=== PATIENT | female | born 1970 | race Caucasian/White ===

== ENCOUNTER 2020-10-31 09:30 | Observation (INO) ==
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
[~2020-10-31 09:30] MED LIST: LACTATED RINGER'S 1,000 ML IV SCH; LR 15ML/HR IV SCH
[2020-10-31] MEDS ORDERED: fentaNYL citrate 100 MCG/2 ML VIAL IV PRN (10:35)
[2020-10-31] MEDS ORDERED: ONDANSETRON INJ 2 MG/ML 2 ML VIAL IV PRN (10:35)
[2020-10-31] MEDS ORDERED: LABETALOL HCL IV 5 MG/ML 20ML IV PRN (10:35)
[2020-10-31] MEDS ORDERED: HYDROmorphone INJ 1 MG/ML SYRINGE IV PRN (10:35)
[2020-10-31] MEDS ORDERED: ePHEDrine sulfate 50 MG/ML AMP IV PRN (10:35)
[2020-10-31] MEDS ORDERED: PHENYLEPHRINE 100MCG/ML 5ML SYR IV PRN (10:35)
[2020-10-31] MEDS ORDERED: ATROPINE SULFATE 0.1 MG/ML 10ML SYR IV PRN (10:35)
[2020-10-31] MEDS ORDERED: PROPOFOL IV EMULSION 10 MG/ML 20 ML VIAL IV ONE (11:39)
[2020-10-31] MEDS ORDERED: GLYCOPYRROLATE 0.2 MG/ML VIAL ONE (11:39)
[2020-10-31] MEDS ORDERED: NEOSTIGMINE METHYLSULFATE 1 MG/ML 10ML VIAL ONE (11:39)
[2020-10-31] MEDS ORDERED: DEXAMETHASONE SOD INJ 4 MG/ML VIAL ONE (11:39)
[2020-10-31] MEDS ORDERED: ROCURONIUM BROMIDE 10 MG/ML 5 ML VIAL IV ONE ×3 (11:39→14:36)
[2020-10-31] MEDS ORDERED: LIDOCAINE 2% 2 ML VIAL/AMP(20MG/ML) INFIL ONE (11:39)
[2020-10-31] MEDS ORDERED: ONDANSETRON INJ 2 MG/ML 2 ML VIAL ONE (11:39)
[2020-10-31] MEDS ORDERED: fentaNYL citrate 100 MCG/2 ML VIAL ONE (11:40)
[2020-10-31] MEDS ORDERED: MIDAZOLAM HCL 1 MG/ML 2ML VIAL ONE (11:40)
--- NOTE | 2020-10-31 11:59 | History & Physical Bridge Note ---
Date of Service October 31, 2020 History & Physical Bridge Note I have examined the patient, reviewed the History & Physical and in the interval since the performance of the History & Physical I have noted the following changes of clinical significance: no changes noted
[2020-10-31] MEDS ORDERED: BUPIVACAINE 0.5 % 5 MG/1 ML MPF 30ML VIAL ONE (12:12)
[2020-10-31] MEDS ORDERED: LABETALOL HCL IV 5 MG/ML 20ML IV ONE (13:21)
[2020-10-31] MEDS ORDERED: TISSEEL FIBRIN SEALANT 4ML TOP ONE (13:23)
[2020-10-31] MEDS ORDERED: DIATRIZOATE MEGLUMINE 30% 100ML VIAL INSTIL ONE (14:05)
[2020-10-31] MEDS ORDERED: ceFAZolin 3,000 MG in DEXTROSE 5% 50 ML IV ONE (14:14)
--- NOTE | 2020-10-31 15:09 | Operative Report ---
PG Post Operative Report Pre & Post Diagnosis Operation Date: 10/31/20 11:10 Pre-Op Diagnosis: Right Ovarian Cyst Post-Op Diagnosis: Right Ovarian Cyst I identified the patient and participated in the time-out.: Yes Procedure Operation Date: 10/31/20 11:10 Actual Procedures p Laparoscopic Robotic Assisted Bilateral Salpingo-Oophorectomy,Cystoscopy, Lysis of Adhesion(Bilateral) - Siddhartha Kelsey MD, FACOG s Cystoscopy Retrograde - Aj Raza MD Surgeon Siddhartha Kelsey MD, FACOG Branch Service Associate .. Estimated Blood Loss 20 Findings Consistent with Post-Op Diagnosis Specimens bilateral adnexa Description of Procedure Patient was given a general anesthetic prepped and draped in dorsolithotomy position bladder drained with a catheter a sponge and a stick was placed in the vagina Gloves were changed us supraumbilical incision was made with scalpel using Sun technique we did a cutdown into the peritoneal cavity entering bluntly with the computer aided design operator's finger a Sun trocar was then placed blunt tip balloon was inflated with air and CO2 gas used to insufflate the abdomen para findings upper abdomen normal no sign of visceral organ injury Deep Trendelenburg was then obtained and the pelvis was viewed Findings significant adhesive disease of epiploic K and filmy adhesions to the bladder as well as both sidewalls and the ovaries pictures taken for documentation 2 robotic ports were placed one in the left one on the right and a accessory port 8 mm on the left upper quadrant all placed under direct visualiz ation Once the robot was docked arm #1 was the bipolar [place] arm #3 was the monopolar manda identified on the right side the ureter it followed a normal course I was able to make a window into the broad ligament lateral to the ovarian artery and vein was then able to undermine the ovarian artery and vein and from the ureter a window was then made we were well away from the right ureter I then coagulated with the bipolar [place] in several locations and then cut the blood supply to the ovary the ovary was attached to epiploic K which were carefully skeletonized off primarily sharply with the curved scissors and I was able to peel the ovary off of the sidewall as well without electrosurgery the last attachment to the distal aspect of the pelvis were removed the patient had a prior hysterectomy so there were no uterine blood supply issues. Ovary was placed in the pelvis the same process was continued on the left side the adhesions were more dense the patient did not have an abnormal left ovary however she wanted both ovaries removed prophylactically I was able to free up the adhesions on the left side. Isolated the blood supply at the left ovarian artery and vein proximal to the ovary this was well away from the left ureter this blood supply was then coagulated and then cut ovary was easily skeletonized used away from its attachments as it was somewhat less adhesed on this side to the sidewall. At this stage hemostasis was excellent we did apply Tisseel to the area because of the location of the ovaries hugging the sidewalls I felt it prudent to do cystoscopy We remove the ovaries by placing the robotic camera and using it manually laparoscopically through the right sided port 10 mm bag was placed to the umbilicus both specimens of the left and right ovary were grasped and placed into the bag with a nontraumatic grasper bag was then removed through the umbilical port and then both specimens were sent to pathology. The umbilical port was then placed back to allow pneumoperitoneum Cystoscope was placed into the bladder visualizing with normal saline abnormal bladder dome no sign of injury the left ureter had a good strong jets instantly I did not see a good strong jets from the right ureter opening. This was observed for at least 25 minutes at this stage I called urology Dr. Raza Is dictated the note but a retrograde pyelogram was performed there was no extravasation of dye no obstruction of the right ureter and we saw no leakage laparoscopically of dye during this process either. This was no obvious explanation why I could not see good strong jet on that right ureter however the patency was established there was no sign of extravasation or blockage. At this stage we made a decision that we will probably keep her hospitalized overnight and recheck her creatinine in the morning and see how her pain level is. After removing all the cystoscope draining the bladder removing all the laparoscopic instruments and ports robot had been undocked gas was allowed to escape incisions injected with 0.5% Marcaine fascia closed in the umbilicus with 0 Vicryl subtenons fat irrigated and closed with 0 Vicryl 4-0 subcuticular Monocryl closures and Dermabond applied sponge and instrument counts correct I attest to the content of the Intraoperative Record and any orders documented therein. Any exceptions are noted below. HERB COUNSELOR Major Procedure Codes Laparotomy/Laparoscopic [address] [facility] (Lysis of adhesions.)
--- NOTE | 2020-10-31 15:12 | Fluoroscopy Report ---
FL retrograde includes kub CLINICAL HISTORY: Retrograde pyelogram. COMPARISON STUDY: None. FLUOROSCOPY TIME: 15 second. FINDINGS: 17 fluoroscopic spot images of the abdomen and pelvis demonstrate retrograde opacification of the right renal collecting system. No hydronephrosis. IMPRESSION: Fluoroscopic assistance for right retrograde pyelogram. ACT 112: Negative or not required by law. Electronically signed by: Fly Darling M.D. 10/31/2020 3:11 PM
--- NOTE | 2020-10-31 15:16 | Anesthesiology Progress Note ---
Date of Service October 31, 2020 Anesthesia Post Procedure Vital Signs Vital Signs: Temp Pulse Resp BP Pulse Ox 10/31/20 10:02 36.9 C 79 18 147/88 H 99 Pain Intensity Right Lower Back: Pain Intensity: 7 Transfer of Care Handoff Completed per policy Notes Mental Status: alert / awake / arousable and participated in evaluation Patient Amnestic to Procedure: Yes Nausea / Vomiting: adequately controlled Pain: adequately controlled Airway Patency, RR, SpO2: stable & adequate BP & HR: stable & adequate Hydration State: stable & adequate Anesthetic Complications: no major complications apparent and Pt Satisfied with anesthetic care
--- NOTE | 2020-10-31 15:20 | Operative Report ---
PG Post Operative Report Pre & Post Diagnosis Operation Date: 10/31/20 11:10 Pre-Op Diagnosis: Right Ovarian Cyst Post-Op Diagnosis: Right Ovarian Cyst I identified the patient and participated in the time-out.: Yes Procedure Operation Date: 10/31/20 11:10 Actual Procedures p Laparoscopic Robotic Assisted Bilateral Salpingo-Oophorectomy,Cystoscopy, L ysis of Adhesion(Bilateral) - Siddhartha Kelsey MD, FACOG s Cystoscopy, Retrograde retrograde pyelogram with radiographic interpretation to rule out ureteral injury - Aj Raza MD Surgeon Aj Raza MD Pressure Test Operator ..None Estimated Blood Loss 0 Findings Consistent with Post-Op Diagnosis 1. Normal urethra and bladder 2. Right retrograde pyelogram revealed no narrowing or extravasation. Diet promptly drained from the ureter and multiple spot films show drainage of contrast from the kidney and proximal ureter. 3. Able to easily pass 5 Algerian open-ended catheter level of the renal pelvis 4. There was a scope in the abdomen at the time of retrograde pyelogram and we saw no pooling of contrast in the pelvis in the area of the distal right ureter 5. Intra-abdominal findings did not show any obvious injury to the ureter and it was peristalsing. The retroperitoneum did not even appear to have been violated in the area over the ureter. Specimens None Drains None Anesthesia Type General Complications None Indications 50-year-old female who is currently Intra-Op for bilateral oophorectomy. At the conclusion of the case, Dr. Kelsey performed cystoscopy and noted a left ureteral jet but did not see a right ureteral jet. He watched for roughly 20 minutes and saw peristalsis but no jet of urine so urology was intraoperatively consulted to rule out right ureteral injury Description of Procedure As this was an Intra-Op consult, informed consent was waived as the patient was already under anesthesia. When I entered the OR, Dr. Kelsey was performing cystoscopy which showed a normal bladder and the right ureter was peristalsing but there was no obvious jet. On the robot, he showed me his dissection. He did take down adhesions in the right lower pelvis just superior to the right distal ureter where it plugs in the bladder. There did not appear to be any violation of the retroperitoneum overlying the right ureter. Based on concern and to be thorough, we opted to shoot a right retrograde pyelogram. I did review her chart and noted a lumbar MRI that did confirm she had bilateral kidneys. I asked anesthesia to give 3 g of Ancef as prophylaxis. I inserted a 21 Algerian rigid to scope and performed cystoscopy which did not show any hematuria, bladder injuries or masses. Once fluoroscopy was appropriately situated and Dr. Kelsey scrubbed back into laparoscopically watch the area of concern, I intubated the distal right ureter with a 5 Algerian open-ended catheter. I shot multiple retrogrades along the length of the ureter and caught most of the kidney but was somewhat limited by the robotic bed. There were no areas of extravasation or narrowing. I was then able to easily pass the 5 Algerian open- ended catheter up in the renal pelvis and confirmed this fluoroscopically. I then removed the 5 Algerian open-ended catheter and watched contrast drain via the right ureter. We took several spot films which confirmed that contrast was draining through the ureter and again there was no narrowing or extravasation. At this time I was fairly confident that there was no ureteral injury. I discussed this with Dr. Kelsey and he agreed. We did not see any pooling of contrast in the pelvis as well. I emptied the bladder and removed the scope. This concluded the end of my portion of the case and I turned the patient back o adalgisa to Dr. Kelsey. Plan: 1. Recommend checking creatinine in the morning. I will round on the patient and ensure she is asymptomatic. If any flank pain were to occur, recommend a renal ultrasound to assess for hydronephrosis. 2. I will see her back in clinic in several weeks with an ultrasound to ensure there are no further issues. I attest to the content of the Intraoperative Record and any orders documented therein. Any exceptions are noted below.
[2020-10-31] MEDS ORDERED: NON-FORMULARY MEDICATION (Cyanocobalamin (Vitamin B-12) 1,000 mcg/mL kit) SQ SCH (16:25)
[2020-10-31] MEDS ORDERED: LACTATED RINGER'S 1,000 ML IV SCH (16:25)
[2020-10-31] MEDS ORDERED: MoRPHine SULFATE 2 MG/ML CARP IV PRN (16:25)
[2020-10-31] MEDS ORDERED: oxyCODONE/ACETAMINOPHEN 5mg/325mg TAB PO PRN (16:25)
[2020-10-31] MEDS ORDERED: MECLIZINE HCL 25 MG TAB PO PRN (16:31)
[2020-10-31] MEDS: CHECK CLONIDINE PATCH PLACEMENT SCH ×2 (16:37→23:10)
[2020-10-31] MEDS ORDERED: CHOLECALCIFEROL 1,000 UNITS 25 MCG TAB PO SCH (17:00)
[2020-10-31] MEDS ORDERED: cloNIDine HCL 0.1 MG/24 HR TRANSDERM SYS TD SCH (18:00)
[2020-10-31] MEDS: oxyCODONE/ACETAMINOPHEN 5mg/325mg TAB PO PRN (18:06)
[2020-10-31] MEDS: ACETAMINOPHEN 500 MG TAB PO SCH (20:08)
[2020-10-31] MEDS: carvediloL 6.25 MG TAB PO SCH (20:09)
[2020-10-31] MEDS ORDERED: PREGABALIN 150 MG CAP PO SCH (21:00)
[2020-11-01] MEDS: oxyCODONE/ACETAMINOPHEN 5mg/325mg TAB PO PRN (03:07)
[2020-11-01 06:48] LABS: Basophils # (auto) 0.01 K/uL (0-0.2); Basophils % (auto) 0.1 %; Hematocrit (blood only) 39.3 % (37-47); Hemoglobin 13.1 g/dL (12.0-16.0); Immature Granulocytes # (auto) 0.02 K/uL (0.00-0.02); Immature Granulocytes % (auto) 0.2 %; Lymphocytes # (auto) 2.17 K/uL (1.2-3.4); Lymphocytes % (auto) 18.4 %; Mean Corpuscular Hemoglobin 29.8 pg (25-34); Mean Corpuscular Hgb Conc 33.3 g/dL (32-36); Mean Corpuscular Volume 89.3 fL (80-100); Mean Platelet Volume 10.4 fL (7.4-10.4); Monocytes # (auto) 0.88 K/uL (0.11-0.59); Monocytes % (auto) 7.5 %; Neutrophils # (auto) 8.71 K/uL (1.4-6.5); Neutrophils % (auto) 73.8 %; Platelet Count 218 K/uL (130-400); RDW Standard Deviation 42.4 fL (36.4-46.3); White Blood Count 11.79 K/uL (4.8-10.8)
[2020-11-01 07:19] LABS: Albumin Level 3.4 gm/dl (3.4-5.0); BUN Creatinine Ratio 18.2 (10-20); Calcium 8.7 mg/dl (8.5-10.1); Creatinine Clr Calc Pharmacy 126.2 ml/min; Est GFR (African American) 114.8 ml/min; Potassium 4.3 mmol/L (3.5-5.1)
[2020-11-01 07:22] LABS: Albumin Globulin Ratio 1.1 (0.9-2); Bilirubin,Total 0.6 mg/dl (0.2-1); Globulin 3.1 gm/dl (2.5-4.0); Phosphorus 4.2 mg/dl (2.5-4.9); Total Protein 6.5 gm/dl (6.4-8.2)
--- NOTE | 2020-11-01 08:13 | Gynecologic Progress Note ---
Date of Service November 01, 2020 Assessment & Plan (1) Ovarian cyst: Plan: Postop day #1 laparoscopic bilateral salpingo-oophorectomy and lysis of adhesions the patient is doing well she has minimal pain she does not have any increase in flank pain although she normally has back pain on her right side. She is voiding well ambulating well tolerating an oral diet she wishes to go home I reviewed with her the issues around surgery where we did perform a cystoscopy due to dense adhesions on the pelvic sidewall to confirm that the ureters were functioning normally I was unable to visualize a good yet on the right side thus urology was called Dr. Raza performed a retrograde pyelogram which showed that the right ureter was open intact and there was no extravasation of dye. This morning her kidney function is normal with creatinine of 0.72 I advised the patient that I could not explain why there was not a good jet of urine coming from the right side however her kidney function seem to be normal the retrograde pyelogram is normal and that I had kept her overnight out of an abundance of caution. She missed meets discharge criteria instructions were reviewed she will contact me if there are concerns Admission and Anticipated Discharge Date Admission Date: October 31, 2020 Results & Data ([facility]) Vital Signs (Past 12 Hours) Vital Signs Temp Pulse Resp BP Pulse Ox 11/01/20 03:05 98.1 F 89 18 129/85 97 10/31/20 23:10 98.2 F 102 H 18 135/86 94 PG Care Time/CCT Total # of Minutes Spent Total Time Spent with Patient: Total time spent is greater than 50% in coordina tion of care (as documented) at patient's floor/unit and/or counseling patient: Coding Level of Care Code 46963 Post Operative Follow-Up Diagnoses Ovarian cyst N83.209
--- NOTE | 2020-11-01 08:16 | Discharge Summary ---
Date of Service November 01, 2020 Discharge Data Procedures Performed Operation Date: 10/31/20 11:10 Actual Procedures p Laparoscopic Robotic Assisted Bilateral Salpingo-Oophorectomy,Cystoscopy, Lysis of Adhesion(Bilateral) - Siddhartha Kelsey MD, FACOG s Cystoscopy Retrograde - Aj Raza MD Hospital Course (1) Ovarian cyst: Postop day #1 laparoscopic bilateral salpingo-oophorectomy and lysis of adhesions the patient is doing well she has minimal pain she does not have any increase in flank pain although she normally has back pain on her right side. She is voiding well ambulating well tolerating an oral diet she wishes to go home I reviewed with her the issues around surgery where we did perform a cystoscopy due to dense adhesions on the pelvic sidewall to confirm that the ureters were functioning normally I was unable to visualize a good yet on the right side thus urology was called Dr. Raza performed a retrograde pyelogram which showed that the right ureter was open intact and there was no extravasation of dye. This morning her kidney function is normal with creatinine of 0.72 I advised the patient that I could not explain why there was not a good jet of urine coming from the right side however her kidney function seem to be normal the retrograde pyelogram is normal and that I had kept her overnight out of an abundance of caution. She missed meets discharge criteria instructions were reviewed she will contact me if there are concerns No urology will follow up with the patient as well Coding Level of Care Code None Diagnoses Ovarian cyst N83.209
--- NOTE | 2020-11-01 08:31 | Urology Progress Note ---
Date of Service November 01, 2020 Assessment & Plan (1) Right ureteral injury: Plan: Refer to my operative note for comprehensive findings. Intraoperatively consulted for possible right ureteral injury. Retrograde pyelogram showed no concern for narrowing or extravation/injury. Kidney drained without issue. -Discussed intraoperative findings with patient and provided reassurance. No concern for injury. All questions answered. -Creatinine this morning stable -Voiding without issue. Explained that she may notice hematuria for next 1-2 days -Plan for following up in 3-4 weeks with renal US to ensure no hydronephrosis. My office will reach out to her to schedule next week -Urology to sign off. Stable for discharge home from urologic perspective. Admission and Anticipated Discharge Date Admission Date: October 31, 2020 Subjective Patient seen on rounds today. Doing well. Denies any new right flank pain. Voiding spontaneously. Review of Systems Review of Systems: 14 point review of systems negative outside of what is listed above in HPI Physical Exam Physical Exam: General: Alert and oriented, no acute distress HEENT: Normocephalic, mucous membranes moist Cardiovascular: Regular rate Pulmonary: Nonlabored respirations Abdomen: Nondistended Extremities: Moves all 4 spontaneously Neuro: No gross deficits Skin: Warm, dry, no rashes noted Results & Data ([facility]) Vital Signs (Past 12 Hours) Vital Signs Temp Pulse Resp BP Pulse Ox 11/01/20 03:05 36.7 C 89 18 129/85 97 10/31/20 23:10 36.8 C 102 H 18 135/86 94 PG Care Time/CCT Total # of Minutes Spent Total Time Spent with Patient: Total time spent is greater than 50% in coordination of care (as documented) at patient's floor/unit and/or counseling patient: [place] [address] Subseq Hosp Care Lvl 2 Patient Type New History Expanded Problem Focused Exam Expanded Problem Focused Medical Decision Making Low Complexity Diagnoses Right ureteral injury S37.10XA
[2020-11-01] MEDS: carvediloL 6.25 MG TAB PO SCH (08:32)
[2020-11-01] MEDS: ACETAMINOPHEN 500 MG TAB PO SCH (08:34)
[2020-11-01] MEDS: CHECK CLONIDINE PATCH PLACEMENT SCH (08:35)
[2020-11-01] MEDS ORDERED: VALSARTAN 80 MG TAB PO SCH (09:00)
[2020-11-01] MEDS ORDERED: DULoxetine HCL 30 MG CAP PO SCH (09:00)
[2020-11-01] MEDS ORDERED: LEVOTHYROXINE SODIUM 112 MCG TABLET PO SCH (09:00)
== END 2020-11-01 09:50 | disposition home or self-care (01) ==
LOC: ASU 09:30 → 4N 09:30